=== PATIENT | female | born 1990 | race Hispanic/Latino ===

== ENCOUNTER → 2020-11-02 09:25 | Outpatient (CLI) | payer OTHER, SELFPAY ==
--- NOTE | 2020-11-02 09:28 | DI.RAD.S_ITS ---
PROCEDURE: XR HAND RT MIN 3V INDICATIONS: right hand lateral and 5th digit pain/fall TECHNIQUE: Three views of the right hand acquired. COMPARISON: None. FINDINGS: Bones: No fractures or dislocations. Carpal bones are normally aligned. No suspicious bony lesions. Soft tissues: No suspicious soft tissue calcifications. IMPRESSION: 1. No fracture or dislocation. Dictated by: Darell Calero M.D. on 11/02/2020 at 9:48 Approved by: Darell Calero M.D. on 11/02/2020 at 9:53
== END ==
PROVIDERS: Referring Provider Student in an Organized Health Care Education/Training Program; Visit Provider Student in an Organized Health Care Education/Training Program
DX: M79.641 Pain in right hand (principal)
CPT/HCPCS: 73130

== ENCOUNTER → 2020-12-01 07:24 | Outpatient (CLI) | payer OTHER, SELFPAY ==
[2020-12-01 08:07] LABS: Add Manual Diff / Slide Review NO; Basophils Absolute Auto 0 /uL (0-100); Basophils Percent Auto 1.1 % (0-2); Eosinophils Absolute Auto 200 /uL (0-450); Eosinophils Percent Auto 4.4 % (2-4); Hematocrit 37.6 % (36-46); Hemoglobin 12.9 g/dL (12.0-16.0); Lymphocytes Absolute Auto 1700 /uL (1100-4500); Lymphocytes Percent Auto 42.6 % (25-40); Mean Corpuscular HGB Conc 34.2 % (30-36); Mean Corpuscular Hemoglobin 33.5 PG (26-34); Monocytes Absolute Auto 500 /uL (0-900); Monocytes Percent Auto 12.1 % (3-14); Neutrophils Absolute Auto 1600 /uL (1500-7000); Neutrophils Percent Auto 39.8 % (50-75); Red Blood Cell Count 3.84 X10^6/uL (4.0-5.2); Red Cell Distribution Width 12.6 % (11.6-14.8)
[2020-12-01 08:14] LABS: Hemoglobin A1C% w Est Avg Glu 4.9 % (4.0-6.0)
[2020-12-01 08:37] LABS: Platelet Count 181 X10^3/uL (150-400)
[2020-12-01 08:58] LABS: Free T4, Direct Thyroxine 1.05 ng/dL (0.78-2.19)
[2020-12-01 09:12] LABS: Thyroid Stimulating Hormone 3.56 uIU/mL (0.47-4.68)
[2020-12-01 09:45] LABS: Folate > 20.0 ng/mL (2.76-20.0); Vitamin B12 862 pg/mL (239-931)
== END ==
PROVIDERS: Referring Provider Obstetrics & Gynecology; Visit Provider Obstetrics & Gynecology
DX: R53.83 Other fatigue (principal)
CPT/HCPCS: 36415; 82306; 82607; 82746; 83036; 84439; 84443; 85025